=== PATIENT | male | born 1955 | race Caucasian/White ===

== ENCOUNTER 2016-04-04 09:42 | Emergency (ER) | payer OTHER ==
--- NOTE | 2016-04-04 10:59 | ED NURSING NOTES ---
Clinical Report - Nurses [facility] [address] [place] [address] 04/04/2016 9:45 Patient: RIKY MONTEIRO TRIAGE Triage time 10:22. Acuity: LEVEL 3. Chief Complaint: ACCIDENTAL INGESTION (Metoprolol, may have taken 3 extra pills, not sure). Alert. No acute distress. SEPSIS SCREEN: Sepsis Screen: negative. Negative (no infection suspected/documented). JOAN COMA SCORE: [place] Coma Scale: 15- eyes open spontaneously (4); best verbal response- oriented x 4 (5); best motor response- obeys commands (6). --10:30 Leandra Teresa R.N. 10:28 04/04/16. BP: 154/84. HR: 81. RR: 18. O2 saturation: 98%. Temp: 98.2 F. Pain level now: 0/10. --10:30 Leandra Teresa R.N. Weight: 90.7 kg stated. Height/Length: 69 inches Per Patient. BMI: 29.5. --10:30 Leandra Teresa R.N. Medications Aspirin Childrens Oral (Tablet Chewable 81 mg) 1 tablet, 81mg day. Crestor Oral 20 mg, daily. LamoTRIgine Oral. Metroprolol 25mg bid . Mucinex Oral. Prilosec Oral 20 mg, daily. Ritalin Oral 20 mg LA, 2x a day. --10:24 Leandra Teresa R.N. Medication/allergy information source: the patient. --10:30 Leandra Teresa R.N. Allergies NKDA. --10:24 Leandra Teresa R.N. History ( Pt assessed by this RN in [facility]. Pt standing, steady on feet, a&o x4. Accidental overdose on metoprolol, taking 100mg total instead of 25mg which he is supposed to take BID. Asymptomatic at this time.). --09:50 Abelino Streeter R.N. Arrived by private vehicle. Historian: patient. Accompanied by family. [facility] This occurred just prior to arrival 0800. 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 PAST MEDICAL HX: Immunizations: status is unknown. SOCIAL HX: Smoker- current status unknown. History of drug use: marijuana. Recently used drugs yesterday. No infectious disease exposure. FALL RISK ASSESSMENT: Fall risk assessment completed. No fall risk identified. NUTRITIONAL RISK ASSESSMENT: The nutritional risk assessment revealed no deficiencies. FUNCTIONAL ASSESSMENT: Functional assessment: no impairments noted. LEARNING NEEDS ASSESSMENT: The learning needs assessment revealed no barriers. SKIN INTEGRITY ASSESSMENT: Skin integrity risk assessment completed. No skin integrity risk identified. --10:30 Leandra Teresa R.N. No depression or suicidal thoughts. --10:31 Leandra Teresa R.N. PROBLEMS: Bipolar Disorder. Bronchospasm. Bronchitis. Depression. Hypertension. --10:27 Leandra Teresa R.N. ADDITIONAL SURGERIES: Rotator Cuff Surgery. --10:27 Leandra Teresa R.N. Cardiac Procedures. --10:27 Leandra Teresa R.N. The following entry was struck by Leandra Teresa R.N., 10:27 <<STRICKEN ENTRY-- Cardiac Procedures. --06:10 Leandra Teresa R.N. --END STRIKE>>. Interventions ID band on patient. To room. --10:30 Leandra Teresa R.N. PHYSICAL ASSESSMENT Ambulatory to room. Patient gowned. GENERAL / NEURO / PSYCH: Alert. Oriented X 4. Appears in no acute distress. Appears anxious. Patient appears calm and cooperative. Gag reflex present. Speech within normal limits. RESPIRATORY: Respirations not labored. CVS: Capillary refill less than 2 seconds. GI / : Abdomen nontender. SKIN: Skin intact. Skin is warm and dry. Skin color is within normal limits. Affect appears within normal limits. --10:31 Leandra Teresa R.N. NURSING PROGRESS NOTES air sampling and monitoring, pulse oximeter and NIBP monitor placed on patient; lunchroom monitor- Lead II; monitor alarms on. Patient gowned. Head of bed elevated. Patient identifiers checked. Call light placed in reach. Side rails up x 2. Patient placed in chair. Brakes of chair on. Patient ready for evaluation. --10:32 Leandra Teresa R.N. EKG time: (1023). EKG was performed by a tech and shown to the ED physician. ( EKG DONE PER NURSING PROTOCOL). --10:43 Adriana Rodriguez. DISPOSITION / DISCHARGE 11:05. Condition at departure: unchanged. No learning barriers present. Discharge instructions provided and reviewed with the patient and spouse. Reviewed warnings (Check med doses twice and wear glasses.). Patient verbalized understanding. Written instructions provided in Turkmen. The patient was discharged home and accompanied by spouse. He left the Emergency Department ambulatory and via private vehicle. Patient driving. Medication list reviewed and validated. --11:07 Leandra Teresa R.N. 11:05 04/04/16. BP: 133/86. HR: 63. RR: 18. O2 saturation: 96% on room air. Temp: deferred. Pain level now: 0/10. 10:28 04/04/16. BP: 154/84. HR: 81. RR: 18. O2 saturation: 98%. Temp: 98.2 F. Pain level now: 0/10. --11:07 Leandra Teresa R.N. Locked/Released at 04/04/2016 11:08 by Leandra Teresa R.N.
--- NOTE | 2016-04-04 10:59 | ED CLINICAL REPORT ---
Clinical Report - Physicians/Mid Levels [facility] [address] [place] [address] 04/04/2016 9:45 Patient: RIKY MONTEIRO Time Seen: 10:29. Arrived- By private vehicle. Historian- patient. HISTORY OF PRESENT ILLNESS Chief Complaint: ACCIDENTAL INGESTION. This occurred today about 2 hours ago. No toxic symptoms present. Single drug taken- Pt states he thought he had taken 3 extra metoprolol, but now thinks he actually took his Lamictal. The patient sought help. No situational problems, alcohol recently or recent drug use. The symptoms are described as (none). Has not been depressed or upset. No anger, suicidal thoughts or hallucinations. Not confused or paranoid. (Pt states he came in just to make sure everything was okay, but that he feels "fine."). Similar symptoms previously: None. Recent medical care: Not recently seen/assessed. REVIEW OF SYSTEMS No headache, dizziness, weakness, chest pain or palpitations. No abdominal pain, vomiting, diarrhea, black stools or numbness. No bloody stools, fever, sore throat, cough or difficulty breathing. No difficulty with urination, skin rash, enlarged lymph nodes or joint pain. All systems otherwise negative, except as recorded above. PAST HISTORY Problems: Bipolar Disorder. Depression. Hypertension. Additional Surgeries: Cardiac Procedures. Rotator Cuff Surgery. Medications: Aspirin Childrens Oral (Tablet Chewable 81 mg) 1 tablet, 81mg day. Crestor Oral 20 mg, daily. LamoTRIgine Oral. Metroprolol 25mg bid . Mucinex Oral. Prilosec Oral 20 mg, daily. Ritalin Oral 20 mg LA, 2x a day. Allergies: NKDA. SOCIAL HISTORY Smoker- current status unknown. History of drug use: marijuana. ADDITIONAL NOTES The nursing notes have been reviewed. PHYSICAL EXAM Vital Signs: 04/04/2016 10:28 BP: 154/84. HR: 81. RR: 18. O2 saturation: 98%. Temp: 98.2 F. Pain level now: 0/10. Have been reviewed. Appearance: Alert. Oriented X3. No acute distress. Eyes: Pupils equal, round and reactive to light. No nystagmus. Extraocular movements normal. ENT: Normal ENT inspection. Neck: Normal inspection. CVS: Normal heart rate and rhythm. Heart sounds normal. Pulses normal. Respiratory: No respiratory distress. Breath sounds normal. Abdomen: Soft and nontender. Back: Normal inspection. Skin: Skin warm and dry. Normal skin color. No rash. Normal skin turgor. Extremities: Extremities exhibit normal ROM. No lower extremity edema. Neuro: Alert. Oriented X 3. Mood/affect normal. Speech normal. Cranial nerves normal (as tested). No cerebellar findings. No motor deficit. No sensory deficit. LABS, X-RAYS, AND EKG Pulse Oximetry: 04/04/2016 10:28 O2 saturation: 98%. (FIO2 - room air). Interpretation: normal. PROGRESS AND PROCEDURES Course of Care: D/w pt: No toxic effects are evident 2 hours post-ingestion. As such, no further intervention is indicated. Patient counseled in person regarding the patient's stable condition, diagnosis and need for follow-up. Concerns were addressed. Old medical records reviewed. Disposition: Discharged. Condition: stable. CLINICAL IMPRESSION Accidental single drug overdose with metoprolol. INSTRUCTIONS Warnings: GENERAL WARNINGS: Return or contact your physician immediately if your condition worsens or changes unexpectedly, if not improving as expected, or if other problems arise. Your Current Medications: CONTINUE TAKING THE FOLLOWING MEDICATIONS: Aspirin Childrens Oral : Tablet Chewable 81 mg, 1 tablet 81mg day. Crestor Oral : 20 mg daily. LamoTRIgine Oral. Metroprolol * : 25mg bid. Mucinex Oral. Prilosec Oral : 20 mg daily. Ritalin Oral : 20 mg LA 2x a day. Follow-up: Follow up with your doctor as needed. Understanding of the discharge instructions verbalized by patient and family. (Electronically signed by Scarlet Seay MD 04/10/2016 8:25)
--- NOTE | 2016-04-04 10:59 | ED NURSING NOTES ---
Clinical Report - Nurses [facility] [address] [place] [address] 04/04/2016 9:45 Patient: RIKY MONTEIRO TRIAGE Triage time 10:22. Acuity: LEVEL 3. Chief Complaint: ACCIDENTAL INGESTION (Metoprolol, may have taken 3 extra pills, not sure). Alert. No acute distress. SEPSIS SCREEN: Sepsis Screen: negative. Negative (no infection suspected/documented). JOAN COMA SCORE: [place] Coma Scale: 15- eyes open spontaneously (4); best verbal response- oriented x 4 (5); best motor response- obeys commands (6). --10:30 Leandra Teresa R.N. 10:28 04/04/16. BP: 154/84. HR: 81. RR: 18. O2 saturation: 98%. Temp: 98.2 F. Pain level now: 0/10. --10:30 Leandra Teresa R.N. Weight: 90.7 kg stated. Height/Length: 69 inches Per Patient. BMI: 29.5. --10:30 Leandra Teresa R.N. Medications Aspirin Childrens Oral (Tablet Chewable 81 mg) 1 tablet, 81mg day. Crestor Oral 20 mg, daily. LamoTRIgine Oral. Metroprolol 25mg bid . Mucinex Oral. Prilosec Oral 20 mg, daily. Ritalin Oral 20 mg LA, 2x a day. --10:24 Leandra Teresa R.N. Medication/allergy information source: the patient. --10:30 Leandra Teresa R.N. Allergies NKDA. --10:24 Leandra Teresa R.N. History ( Pt assessed by this RN in [facility]. Pt standing, steady on feet, a&o x4. Accidental overdose on metoprolol, taking 100mg total instead of 25mg which he is supposed to take BID. Asymptomatic at this time.). --09:50 Abelino Streeter R.N. Arrived by private vehicle. Historian: patient. Accompanied by family. [facility] This occurred just prior to arrival 0800. 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 PAST MEDICAL HX: Immunizations: status is unknown. SOCIAL HX: Smoker- current status unknown. History of drug use: marijuana. Recently used drugs yesterday. No infectious disease exposure. FALL RISK ASSESSMENT: Fall risk assessment completed. No fall risk identified. NUTRITIONAL RISK ASSESSMENT: The nutritional risk assessment revealed no deficiencies. FUNCTIONAL ASSESSMENT: Functional assessment: no impairments noted. LEARNING NEEDS ASSESSMENT: The learning needs assessment revealed no barriers. SKIN INTEGRITY ASSESSMENT: Skin integrity risk assessment completed. No skin integrity risk identified. --10:30 Leandra Teresa R.N. No depression or suicidal thoughts. --10:31 Leandra Teresa R.N. PROBLEMS: Bipolar Disorder. Bronchospasm. Bronchitis. Depression. Hypertension. --10:27 Leandra Teresa R.N. ADDITIONAL SURGERIES: Rotator Cuff Surgery. --10:27 Leandra Teresa R.N. Cardiac Procedures. --10:27 Leandra Teresa R.N. The following entry was struck by Leandra Teresa R.N., 10:27 <<STRICKEN ENTRY-- Cardiac Procedures. --06:10 Leandra Teresa R.N. --END STRIKE>>. Interventions ID band on patient. To room. --10:30 Leandra Teresa R.N. PHYSICAL ASSESSMENT Ambulatory to room. Patient gowned. GENERAL / NEURO / PSYCH: Alert. Oriented X 4. Appears in no acute distress. Appears anxious. Patient appears calm and cooperative. Gag reflex present. Speech within normal limits. RESPIRATORY: Respirations not labored. CVS: Capillary refill less than 2 seconds. GI / : Abdomen nontender. SKIN: Skin intact. Skin is warm and dry. Skin color is within normal limits. Affect appears within normal limits. --10:31 Leandra Teresa R.N. NURSING PROGRESS NOTES environmental monitoring specialist, pulse oximeter and NIBP monitor placed on patient; awake overnight monitor- Lead II; monitor alarms on. Patient gowned. Head of bed elevated. Patient identifiers checked. Call light placed in reach. Side rails up x 2. Patient placed in chair. Brakes of chair on. Patient ready for evaluation. --10:32 Leandra Teresa R.N. EKG time: (1023). EKG was performed by a tech and shown to the ED physician. ( EKG DONE PER NURSING PROTOCOL). --10:43 Adriana Rodriguez. DISPOSITION / DISCHARGE 11:05. Condition at departure: unchanged. No learning barriers present. Discharge instructions provided and reviewed with the patient and spouse. Reviewed warnings (Check med doses twice and wear glasses.). Patient verbalized understanding. Written instructions provided in Indonesian. The patient was discharged home and accompanied by spouse. He left the Emergency Department ambulatory and via private vehicle. Patient driving. Medication list reviewed and validated. --11:07 Leandra Teresa R.N. 11:05 04/04/16. BP: 133/86. HR: 63. RR: 18. O2 saturation: 96% on room air. Temp: deferred. Pain level now: 0/10. 10:28 04/04/16. BP: 154/84. HR: 81. RR: 18. O2 saturation: 98%. Temp: 98.2 F. Pain level now: 0/10. --11:07 Leandra Teresa R.N. Locked/Released at 04/04/2016 11:08 by Leandra Teresa R.N.
--- NOTE | 2016-04-10 08:25 | ED MAR SUMMARY ---
..... Medication Administration Record [facility] [address] [place], [place] [id number] Patient: RIKY MONTEIRO Visit ID: [id number] 60y, M Weight: 90.7 kg Height/Length: 69 in BMI: 29.5 ALLERGIES: NKDA
--- NOTE | 2016-04-10 08:25 | ED DISCHARGE INSTRUCTIONS ---
Patient: RIKY MONTEIRO General Instructions [facility] VisitID: [id number] [place] [address] 60y, M Registration Date/Time: 04/04/2016 Accidental single drug overdose with metoprolol. INSTRUCTIONS Warnings: GENERAL WARNINGS: Return or contact your physician immediately if your condition worsens or changes unexpectedly, if not improving as expected, or if other problems arise. Your Current Medications: CONTINUE TAKING THE FOLLOWING MEDICATIONS: Aspirin Childrens Oral : Tablet Chewable 81 mg, 1 tablet 81mg day. Crestor Oral : 20 mg daily. LamoTRIgine Oral. Metroprolol * : 25mg bid. Mucinex Oral. Prilosec Oral : 20 mg daily. Ritalin Oral : 20 mg LA 2x a day. Follow-up: Follow up with your doctor as needed. Understanding of the discharge instructions verbalized by patient and family. ADDITIONAL INFORMATION Accidental Ingestion:Non-Toxic [Adult] You have been evaluated and treated for taking too much of a medicine or swallowing a chemical product. There is no sign of toxic effect at this time. It is very unlikely that any new symptoms will appear. As a safeguard, you must be alert for symptoms during the next 24 hours (see below). The exact symptom will depend on what was swallowed. Home Care: If LIQUID CHARCOAL was given to neutralize what was swallowed, it will cause a black color to the stools for 1-2 days. Usually, a laxative (sorbitol) is given with charcoal to speed the removal of any toxins from the intestinal tract. This may cause diarrhea for up to 24 hours. If no laxative was given with charcoal, you may get constipated. If this occurs, you may take an [id number] laxative such as Dulcolax pills or suppository. Prevention: Keep medicines, pesticides, and other household chemicals in their original containers. Clearly nona all harmful products if a different bottle is used. Follow Up with your doctor if all symptoms do not resolve within 24 hours or if constipation is not relieved by one or two doses of laxatives. Get Prompt Medical Attention if any of the following occur: Excess drowsiness or inability to be awakened Rapid heart beat, shakiness or seizure Fast breathing (over 25 breaths/minute) or slow breathing (less than 8 breaths/minute) Feeling shortness of breath Fever of 100.4F (38C) or higher, or as directed by your healthcare provider Vomiting or diarrhea for more than 24 hours Blood in stools or vomit (black or red color) Chest or abdominal pain Dizziness, weakness or fainting You have been given the following additional information: Overdose, Accidental (Adult) (Electronically signed by Scarlet Seay MD 04/10/2016 8:25)
--- NOTE | 2016-04-10 08:25 | ED MAR SUMMARY ---
..... Medication Administration Record [facility] [address] [place], [place] [id number] Patient: RIKY MONTEIRO Visit ID: [id number] 60y, M Weight: 90.7 kg Height/Length: 69 in BMI: 29.5 ALLERGIES: NKDA
--- NOTE | 2016-04-10 08:25 | ED MED RECONCILIATION SUMMARY ---
Patient: RIKY MONTEIRO Medication Reconciliation Report [facility] VisitID: [id number] [address] [place] [address] 60y, M Registration Date/Time: 04/04/2016 Weight: 90.7 kg Height/Length: 69 in. BMI: 29.5 ALLERGIES: NKDA The patient's Home Medications are listed below: CONTINUE TAKING THE FOLLOWING MEDICATIONS: Aspirin Childrens Oral (81 mg) 1 tablet, 81mg day Crestor Oral 20 mg, daily LamoTRIgine Oral Metroprolol 25mg bid Mucinex Oral Prilosec Oral 20 mg, daily Ritalin Oral 20 mg LA, 2x a day The source(s) of the original Home Medication information: patient The following Medications were given to the patient in the Emergency Department: None. The following Medications were prescribed to the patient: None.
--- NOTE | 2016-04-10 08:25 | ED DISCHARGE INSTRUCTIONS ---
Patient: RIKY MONTEIRO General Instructions [facility] VisitID: [id number] [place] [address] 60y, M Registration Date/Time: 04/04/2016 Accidental single drug overdose with metoprolol. INSTRUCTIONS Warnings: GENERAL WARNINGS: Return or contact your physician immediately if your condition worsens or changes unexpectedly, if not improving as expected, or if other problems arise. Your Current Medications: CONTINUE TAKING THE FOLLOWING MEDICATIONS: Aspirin Childrens Oral : Tablet Chewable 81 mg, 1 tablet 81mg day. Crestor Oral : 20 mg daily. LamoTRIgine Oral. Metroprolol * : 25mg bid. Mucinex Oral. Prilosec Oral : 20 mg daily. Ritalin Oral : 20 mg LA 2x a day. Follow-up: Follow up with your doctor as needed. Understanding of the discharge instructions verbalized by patient and family. ADDITIONAL INFORMATION Accidental Ingestion:Non-Toxic [Adult] You have been evaluated and treated for taking too much of a medicine or swallowing a chemical product. There is no sign of toxic effect at this time. It is very unlikely that any new symptoms will appear. As a safeguard, you must be alert for symptoms during the next 24 hours (see below). The exact symptom will depend on what was swallowed. Home Care: If LIQUID CHARCOAL was given to neutralize what was swallowed, it will cause a black color to the stools for 1-2 days. Usually, a laxative (sorbitol) is given with charcoal to speed the removal of any toxins from the intestinal tract. This may cause diarrhea for up to 24 hours. If no laxative was given with charcoal, you may get constipated. If this occurs, you may take an [id number] laxative such as Dulcolax pills or suppository. Prevention: Keep medicines, pesticides, and other household chemicals in their original containers. Clearly nona all harmful products if a different bottle is used. Follow Up with your doctor if all symptoms do not resolve within 24 hours or if constipation is not relieved by one or two doses of laxatives. Get Prompt Medical Attention if any of the following occur: Excess drowsiness or inability to be awakened Rapid heart beat, shakiness or seizure Fast breathing (over 25 breaths/minute) or slow breathing (less than 8 breaths/minute) Feeling shortness of breath Fever of 100.4F (38C) or higher, or as directed by your healthcare provider Vomiting or diarrhea for more than 24 hours Blood in stools or vomit (black or red color) Chest or abdominal pain Dizziness, weakness or fainting You have been given the following additional information: Overdose, Accidental (Adult) (Electronically signed by Scarlet Seay MD 04/10/2016 8:25)
--- NOTE | 2016-04-10 08:25 | ED MED RECONCILIATION SUMMARY ---
Patient: RIKY MONTEIRO Medication Reconciliation Report [facility] VisitID: [id number] [address] [place] [address] 60y, M Registration Date/Time: 04/04/2016 Weight: 90.7 kg Height/Length: 69 in. BMI: 29.5 ALLERGIES: NKDA The patient's Home Medications are listed below: CONTINUE TAKING THE FOLLOWING MEDICATIONS: Aspirin Childrens Oral (81 mg) 1 tablet, 81mg day Crestor Oral 20 mg, daily LamoTRIgine Oral Metroprolol 25mg bid Mucinex Oral Prilosec Oral 20 mg, daily Ritalin Oral 20 mg LA, 2x a day The source(s) of the original Home Medication information: patient The following Medications were given to the patient in the Emergency Department: None. The following Medications were prescribed to the patient: None.
== END 2016-04-04 11:05 | disposition home or self-care (01) ==
LOC: ED SRH 09:42
DX: T44.7X1A Poisoning by beta-adrenoreceptor antagonists, accidental (unintentional), initial encounter (principal); X58.XXXA Exposure to other specified factors, initial encounter; Y93.89 Activity, other specified; Y99.8 Other external cause status; Y92.9 Unspecified place or not applicable; I10 Essential (primary) hypertension; Z79.82 Long term (current) use of aspirin; Z79.899 Other long term (current) drug therapy